=== PATIENT | female | born 1975 ===

== ENCOUNTER 2017-07-31 07:42 | Emergency (ER) | payer OTHER ==
[2017-07-31 07:46] VITALS: O2SAT 100
[2017-07-31 07:47] VITALS: BMI 28.2
[2017-07-31] MEDS ORDERED: Sodium Chloride 0.9% 1,000 ML IV STA (08:06)
--- NOTE | 2017-07-31 08:15 | ED PDOC ---
HPI: Headache Time Seen by Provider: 07/31/17 07:45 Chief Complaint (Nursing): Headache Chief Complaint (Provider): Headache History Per: Patient History/Exam Limitations: no limitations Onset/Duration Of Symptoms: Days (x2) Current Symptoms Are (Timing): Still Present Additional Complaint(s): 42 year old female with a past medical history of headaches presents to the ED complaining of a headache associated with chills and nausea, onset two days ago. Patient reports headache to be progressive, not of a thunderclap nature. Patient reports the last time she had a similar headache three months ago. Denies vomiting, diarrhea, and neck pain. PMD: None Provided Past Medical History Reviewed: Historical Data, Nursing Documentation, Vital Signs Vital Signs: Last Vital Signs Temp 101 F H 07/31/17 07:45 Pulse 73 07/31/17 07:45 Resp BP 121/79 07/31/17 07:45 Pulse Ox 100 07/31/17 07:45 - Surgical History Surgical History: No Surg Hx - Family History Family History: States: Unknown Family Hx - Allergies Allergies/Adverse Reactions: Allergies Allergy/AdvReac Type Severity Reaction Status Date / Time No Known Allergies Allergy Verified 07/31/17 07:53 Review of Systems ROS Statement: Except As Marked, All Systems Reviewed And Found Negative Constitutional: Positive for: Chills Gastrointestinal: Positive for: Nausea. Negative for: Vomiting, Diarrhea Musculoskeletal: Negative for: Neck Pain Neurological: Positive for: Headache (progressive) Physical Exam - Reviewed Nursing Documentation Reviewed: Yes Vital Signs Reviewed: Yes - Physical Exam Appears: Positive for: Non-toxic, No Acute Distress Head Exam: Positive for: ATRAUMATIC, NORMOCEPHALIC Skin: Positive for: Normal Color, Warm, DRY Eye Exam: Positive for: EOMI, Normal appearance, PERRL ENT: Positive for: Normal ENT Inspection Neck: Positive for: Normal, Painless ROM Cardiovascular/Chest: Positive for: Regular Rate, Rhythm. Negative for: Murmur Respiratory: Positive for: Normal Breath Sounds. Negative for: Respiratory Distress Gastrointestinal/Abdominal: Positive for: Normal Exam, Soft Back: Positive for: Normal Inspection Extremity: Positive for: Normal ROM Neurologic/Psych: Positive for: Alert, Oriented (x3) - Laboratory Results Result Diagrams: 07/31/17 08:23 07/31/17 08:23 - ECG O2 Sat by Pulse Oximetry: 100 (RA) Pulse Ox Interpretation: Normal Medical Decision Making Medical Decision Making: Time: 806 Impression: Rule out meningitis Plan: -- CT Head w/o contrast -- CMP -- CBC with differentials -- Sodium Chloride 999 mls/hr -- Reglan 10 mg IVP -- Tylenol 650 mg PO -- Zofran 4 mg PO -- Patient will be put into isolation, as a precaution due to fever and other symptoms. Time: 826 Plan: -- Venous Blood Gas -- Blood Culture Time: 839 Plan: -- Urinalysis -- Influenza A B -- Urine C & S -- CXR Portable Time: 904 -- Patient has been moved to isolation room. Patient's CBC reviewed - white blood cell count is normal. -- Awaiting CT Head -- VBG results show PH is normal and lactic acid is 1.4 Time: [address] RESULTS FINDINGS: HEMORRHAGE: No intracranial hemorrhage. BRAIN: Crowell-white matter differentiation is preserved. There is no mass, mass effect or abnormal extra-axial fluid collection. There is no territorial infarction. VENTRICLES: The ventricles are normal in size, shape and configuration. CALVARIUM: The skull base and calvarium are normal. PARANASAL SINUSES: Predominantly clear. MASTOID AIR CELLS: Predominantly clear. OTHER FINDINGS: None. IMPRESSION: No acute intracranial abnormality. Time: 947 CXR REULTS FINDINGS: LUNGS: The lungs are clear. PLEURA: No significant pleural effusion identified, no pneumothorax apparent. CARDIOVASCULAR: Normal. OSSEOUS STRUCTURES: No significant abnormalities. VISUALIZED UPPER ABDOMEN: Normal. OTHER FINDINGS: None. IMPRESSION: No active pulmonary disease. 1100 am Reevaluated patient, she feels better. no headache, no neck pain. no fever. pt is awake and alert. no distress. Recommended to patient that I perform a spinal tap to rule out meningitis given the headache and fever. Used interpreter translator from [place] [id number] to explain why this was needed, and explain the risks and benefits of the procedure. Benefits include diagnosis and treatment of meningitis. risks of procedure included bleeding and infection at the site. Time: 150 -- Patient refuses further care, evaluation or treatment in the ER. Patient informed of the reasons for the following and planned treatment, which patient understands, however still refuses. Patient informed of the risk and benefits of treatment. Informed that the risk could include worsening of current conditions, undiagnosed conditions, disability or even . Patient understands the following risk and the benefits of treatment. Patient has the capacity to make decisions and still refuses treatment by RN, PA and ER MD. Patient encouraged to return to the ER at any time and to follow up with pmd. Scribe Attestation: Documented by Hai Boss, acting as a scribe for Dr. Nain Piper MD Provider Scribe Attestation: All medical record entries made by the Scribe were at my direction and personally dictated by me. I have reviewed the chart and agree that the record accurately reflects my personal performance of the history, physical exam, medical decision making, and the department course for this patient. I have also personally directed, reviewed, and agree with the discharge instructions and disposition. Disposition - Clinical Impression Clinical Impression: Headache, Left against medical advice - Disposition Referrals: [facility] [Outside] [facility] [Outside] Condition: IMPROVED Additional Instructions: follow up in the clinic as soon as possible return to the ED with any worsening or concerning symptoms Instructions: Headache, Adult, Leaving Against Medical Advice Forms: [facility] (Urdu) Print Language: [place]
[2017-07-31 08:31] LABS: VENOUS BLOOD GAS BASE EXCESS 1.5 mmol/L (0.0-2.0); VENOUS BLOOD GAS PCO2 39 mmHg (40-60); VENOUS BLOOD GAS PO2 52 mm/Hg (30-55); VENOUS BLOOD PH 7.43 (7.32-7.43)
[2017-07-31 08:34] LABS: BASO % 0.4 % (0.0-2.0); EOS # 0.1 K/uL (0.0-0.7); EOS % 0.7 % (0.0-4.0); HEMOGLOBIN 11.5 g/dL (12.0-16.0); LYMPH # 1.3 K/uL (1.0-4.3); LYMPH % 15.5 % (20.0-40.0); MEAN CELL VOLUME 70.6 fl (81.0-99.0); MEAN CORPUSCULAR HEMOGLOBIN 23.3 pg (27.0-31.0); MEAN PLATELET VOLUME 8.5 fl (7.2-11.7); MONO # 0.4 K/uL (0.0-0.8); MONO % 4.9 % (0.0-10.0); NEUT # 6.5 K/uL (1.8-7.0); NEUT % 78.5 % (50.0-75.0); RBC 4.95 Mil/uL (3.80-5.20); RED CELL DISTRIBUTION WIDTH 18.1 % (11.5-14.5); WHITE BLOOD COUNT 8.2 K/uL (4.8-10.8)
[2017-07-31 08:56] LABS: SQUAMOUS EPITHIAL < 1 /hpf (0-5); URINE BILIRUBIN NEGATIVE (NEGATIVE); URINE BLOOD NEGATIVE (NEGATIVE); URINE CLARITY SLIGHTY-CLOUDY (Clear); URINE COLOR YELLOW (YELLOW); URINE GLUCOSE (UA) NEG (Normal); URINE LEUKOCYTE ESTERASE NEG Leu/uL (Negative); URINE PROTEIN NEGATIVE (NEGATIVE); URINE UROBILINOGEN 0.2-1.0 mg/dL (0.2-1.0)
[2017-07-31 09:16] LABS: ALB/GLOB RATIO 1.2 (1.0-2.1); ALBUMIN 4.3 g/dL (3.5-5.0); ALT/SGPT 30 U/L (9-52); AST/SGOT 27 U/L (14-36); BLOOD UREA NITROGEN 13 mg/dl (7-17); CALCIUM 9.3 mg/dL (8.4-10.2); GFR AFRICAN-AMERICAN > 60; GFR NON-AFRICAN AMERICAN > 60
--- NOTE | 2017-07-31 09:22 | CT ---
PROCEDURE: CT HEAD WITHOUT CONTRAST. HISTORY: Headache COMPARISON: None available. TECHNIQUE: Axial computed tomography images were obtained through the head/brain without intravenous contrast. Radiation dose: Total exam DLP = 1099.78 mGy-cm. This CT exam was performed using one or more of the following dose reduction techniques: Automated exposure control, adjustment of the mA and/or kV according to patient size, and/or use of iterative reconstruction technique. FINDINGS: HEMORRHAGE: No intracranial hemorrhage. BRAIN: Crowell-white matter differentiation is preserved. There is no mass, mass effect or abnormal extra-axial fluid collection. There is no territorial infarction. VENTRICLES: The ventricles are normal in size, shape and configuration. CALVARIUM: The skull base and calvarium are normal. PARANASAL SINUSES: Predominantly clear. MASTOID AIR CELLS: Predominantly clear. OTHER FINDINGS: None. IMPRESSION: No acute intracranial abnormality.
--- NOTE | 2017-07-31 09:50 | RAD ---
HISTORY: fever COMPARISON: No prior. FINDINGS: LUNGS: The lungs are clear. PLEURA: No significant pleural effusion identified, no pneumothorax apparent. CARDIOVASCULAR: Normal. OSSEOUS STRUCTURES: No significant abnormalities. VISUALIZED UPPER ABDOMEN: Normal. OTHER FINDINGS: None. IMPRESSION: No active pulmonary disease.
[2017-07-31] MEDS ORDERED: cefTRIAXone 2 GM in Sodium Chloride 0.9% 100 ML IVPB ONE (12:00)
[2017-07-31] MEDS ORDERED: Vancomycin 1 g Inj ONE (12:02)
[2017-07-31 15:16] VITALS: BP 125/80; PULSE 81; RESP 16; TEMP 98.8
== END 2017-07-31 15:20 | disposition left against medical advice (07) ==
LOC: H.ER 07:42
DX: R51 Headache (principal)
CPT/HCPCS: 70450; 71045; 80053; 81003; 82803; 85025; 87040; 87086; 87804; 96365; 96375; 99284; J0696; J1885; J2765; J7030

== ENCOUNTER 2017-08-01 18:06 | Emergency (ER) | payer SELFPAY ==
[2017-08-01 18:06] VITALS: BMI 28.2
[2017-08-01 18:28] VITALS: RESP 18; O2SAT 99
[2017-08-01] MEDS ORDERED: Sodium Chloride 0.9% 1,000 ML IV STA ×2 (20:03→21:19)
[2017-08-01 21:03] LABS: BASO % 0.6 % (0.0-2.0); EOS % 0.8 % (0.0-4.0); HEMOGLOBIN 11.7 g/dL (12.0-16.0); LYMPH # 1.5 K/uL (1.0-4.3); LYMPH % 24.8 % (20.0-40.0); MEAN CELL VOLUME 71.6 fl (81.0-99.0); MEAN CORPUSCULAR HGB CONC 32.1 g/dL (33.0-37.0); MEAN PLATELET VOLUME 8.4 fl (7.2-11.7); MONO # 0.5 K/uL (0.0-0.8); MONO % 8.5 % (0.0-10.0); NEUT % 65.3 % (50.0-75.0); RBC 5.09 Mil/uL (3.80-5.20); RED CELL DISTRIBUTION WIDTH 17.7 % (11.5-14.5); WHITE BLOOD COUNT 6.2 K/uL (4.8-10.8)
[2017-08-01 21:07] LABS: SQUAMOUS EPITHIAL < 1 /hpf (0-5); URINE BILIRUBIN NEGATIVE (NEGATIVE); URINE BLOOD NEGATIVE (NEGATIVE); URINE CLARITY CLEAR (Clear); URINE COLOR STRAW (YELLOW); URINE GLUCOSE (UA) NEG (Normal); URINE LEUKOCYTE ESTERASE NEG Leu/uL (Negative); URINE PROTEIN NEGATIVE (NEGATIVE); URINE UROBILINOGEN 0.2-1.0 mg/dL (0.2-1.0)
[2017-08-01 21:09] LABS: ALB/GLOB RATIO 1.2 (1.0-2.1); ALBUMIN 4.4 g/dL (3.5-5.0); ALT/SGPT 30 U/L (9-52); AST/SGOT 24 U/L (14-36); BLOOD UREA NITROGEN 10 mg/dl (7-17); CALCIUM 9.4 mg/dL (8.4-10.2); GFR AFRICAN-AMERICAN > 60; GFR NON-AFRICAN AMERICAN > 60
[2017-08-01] MEDS ORDERED: DiphenhydrAMINE 50 mg/ml Inj IV STA (21:55)
[2017-08-01] MEDS ORDERED: DiphenhydrAMINE 50 mg/ml Inj ONE (21:59)
[2017-08-01] MEDS ORDERED: Promethazine 25 MG in Sodium Chloride 0.9% 50 ML IVPB ONE (22:00)
[2017-08-01 22:04] VITALS: TEMP 98.1
[2017-08-02 01:01] VITALS: BP 116/81; PULSE 51
--- NOTE | 2017-08-02 01:22 | ED PDOC ---
HPI: Headache Time Seen by Provider: 08/01/17 19:32 Chief Complaint (Nursing): Headache Chief Complaint (Provider): Headache History Per: Patient History/Exam Limitations: no limitations Onset/Duration Of Symptoms: Days Current Symptoms Are (Timing): Still Present Pain Scale Rating Of: 8 Quality: "Pain" Preceeding Symptoms: denies: Visual Disturbances, Known Migraine Symptoms Associated Symptoms: denies: Photophobia, Blurred Vision, Nausea, Vomiting, Extremity Weakness Additional History Per: Patient Additional Complaint(s): 42yo female, with no past medical history, presents to ER with complaints of headache and fever. Patient was seen in this ER 1 day prior for same complaints , and had a full workup including CT head and labs which were both normal. Patient states her headache had resolved during the visit and she was informed she would need a spinal tap. patient declined the study and elected to sign out AMA; on discharge, patient was given prescription for Augmentin (unsure as to why) and states she thought that medication was to treat her headache and fever. Patient reports she did not use any Tylenol/Ibuprofen for pain relief and her headache and fever has returned, prompting the ER visit. She denies any weakness, nausea, vomiting, photophobia, neck stiffness or neck pain. She offers no other medical complaints. PMD: None provided Past Medical History Reviewed: Historical Data, Nursing Documentation, Vital Signs Vital Signs: Last Vital Signs Temp 98.1 F 08/02/17 01:00 Pulse 51 L 08/02/17 01:00 Resp 18 08/02/17 01:00 BP 116/81 08/02/17 01:00 Pulse Ox 99 08/02/17 01:00 - Medical History PMH: No Chronic Diseases - Surgical History Surgical History: No Surg Hx - Family History Family History: States: No Known Family Hx, Unknown Family Hx - Home Medications Home Medications: Ambulatory Orders Medication Instructions Recorded Amoxicillin/Clavulanate [Augmentin 1 tab PO BID #20 tab 07/31/17 875 MG-125 MG] Ibuprofen [Motrin Tab] 600 mg PO Q6 PRN #16 tab 08/02/17 - Allergies Allergies/Adverse Reactions: Allergies Allergy/AdvReac Type Severity Reaction Status Date / Time No Known Allergies Allergy Verified 07/31/17 07:53 Review of Systems ROS Statement: Except As Marked, All Systems Reviewed And Found Negative Constitutional: Positive for: Fever. Negative for: Weakness Eyes: Negative for: Vision Change Gastrointestinal: Negative for: Nausea, Vomiting Musculoskeletal: Negative for: Neck Pain Neurological: Positive for: Headache. Negative for: Weakness, Numbness Physical Exam - Reviewed Nursing Documentation Reviewed: Yes Vital Signs Reviewed: Yes - Physical Exam Appears: Positive for: Non-toxic, No Acute Distress Head Exam: Positive for: ATRAUMATIC, NORMAL INSPECTION, NORMOCEPHALIC Skin: Positive for: Normal Color Eye Exam: Positive for: Normal appearance, EOMI, PERRL Neck: Positive for: Normal, Painless ROM, Supple. Negative for: Decreased ROM, Pain On Movement Of Neck Cardiovascular/Chest: Positive for: Regular Rate, Rhythm Respiratory: Positive for: Normal Breath Sounds Gastrointestinal/Abdominal: Positive for: Normal Exam, Soft Back: Positive for: Normal Inspection Extremity: Positive for: Normal ROM Neurologic/Psych: Positive for: Alert, Oriented - Laboratory Results Result Diagrams: 08/01/17 20:49 08/01/17 20:49 - ECG O2 Sat by Pulse Oximetry: 99 (RA) Pulse Ox Interpretation: Normal Medical Decision Making Medical Decision Making: Impression: 42 yo female with Headache and fever Plan: -- IV fluids -- Toradol 30mg IV -- Reglan 10mg IVP -- Tylenol 975mg PO Time: 2200 Patient reportsmarked improvement in symptoms; no headache She remains nonmeningitic in exam and appearance; no indication for LP as d/w patient Patient given return precautions and dcd home Dx Viral illness Stable Time: 0114 On reevaluation, patient with resolution of pain. She is stable for discharge home and is instructed to follow up with PMD in 2-3 days. Scribe Attestation: Documented by Nohemi Crowder, acting as a scribe for Basil Briseno MD Provider Attestation: All medical record entries made by the Scribe were at my direction and personally dictated by me. I have reviewed the chart and agree that the record accurately reflects my personal performance of the history, physical exam, medical decision making, and the department course for this patient. I have also personally directed, reviewed, and agree with the discharge instructions and disposition. Disposition - Clinical Impression Clinical Impression: Viral syndrome - Disposition Referrals: [facility] [Outside] Disposition: Routine/Home Disposition Time: 01:14 Condition: STABLE Prescriptions: Ibuprofen [Motrin Tab] 600 mg PO Q6 PRN #16 tab PRN Reason: headache/fever Instructions: Viral Syndrome (DC) Forms: [facility] (Wolof) Print Language: [place]RA[place]I
== END 2017-08-02 01:15 | disposition home or self-care (01) ==
LOC: H.ER 18:06
DX: B34.9 Viral infection, unspecified (principal)
CPT/HCPCS: 80053; 81003; 81025; 83605; 85025; 87040; 87804; 96360; 96361; 96374; 96375; J1200; J1885; J2550; J2765; J7030